=== PATIENT | male | born 1990 | race Caucasian/White ===

== ENCOUNTER → 2018-02-04 | Outpatient (CLI) | payer OTHER | LOC: M CARPUL 08:24 | DX: G47.30 Sleep apnea, unspecified (principal); R03.0 Elevated blood-pressure reading, without diagnosis of hypertension | CPT/HCPCS: 93306 ==

== ENCOUNTER → 2022-08-11 | Outpatient (REF) | LOC: M RAD 16:37 | PROVIDERS: ATTEND Internal Medicine | DX: M54.50 Low back pain, unspecified (principal) ==

== ENCOUNTER → 2022-12-07 | Outpatient (CLI) | payer OTHER ==
[~2022-12-07] MED LIST: PROHANCE 279.3MG/ML 15ML VIAL As Ordered ONE; PROHANCE 279.3MG/ML 5ML VIAL As Ordered ONE
== END ==
LOC: M RAD 14:21
PROVIDERS: ATTEND Internal Medicine
DX: R51.9 Headache, unspecified (principal)
CPT/HCPCS: 70553; A9576

== ENCOUNTER → 2023-01-27 | Outpatient (CLI) | payer OTHER | LOC: M SLEEP 20:00 | PROVIDERS: ATTEND Internal Medicine | DX: G47.33 Obstructive sleep apnea (adult) (pediatric) (principal) ==

== ENCOUNTER 2023-03-18 12:49 | Emergency (ER) | payer OTHER ==
[~2023-03-18] VITALS: Ht 193 cm; Wt 126.0 kg
[2023-03-18 12:49] VITALS: BP 136/87
[2023-03-18] MEDS ORDERED: AMOX875T (13:00)
[2023-03-18] MEDS ORDERED: ANDR1.62 (13:00)
[2023-03-18] MEDS ORDERED: METO1TAB7 (13:00)
[2023-03-18] MEDS ORDERED: CELE1CAP9 (13:00)
[2023-03-18] MEDS ORDERED: BOOSTRIX VACCINE (TETANUS/DIPHTH/ACEL. PERTUSSIS) 0.5ML SYR IM ONE (13:00)
[2023-03-18] MEDS ORDERED: VITA100093 (13:00)
[2023-03-18] MEDS ORDERED: LIDOCAINE 2% MDV 20ML VIAL SC ONE (13:30)
== END 2023-03-18 14:10 | disposition home or self-care (01) ==
LOC: M ED 12:49
DX: S61.012A Laceration without foreign body of left thumb without damage to nail, initial encounter (principal); W26.8XXA Contact with other sharp object(s), not elsewhere classified, initial encounter; Y92.019 Unspecified place in single-family (private) house as the place of occurrence of the external cause; Y93.89 Activity, other specified; Y99.8 Other external cause status; I10 Essential (primary) hypertension; R86.1 Abnormal level of hormones in specimens from male genital organs

== ENCOUNTER 2024-07-18 01:06 | Emergency (ER) | payer OTHER ==
[~2024-07-18] VITALS: Ht 193 cm; Wt 108.3 kg
[~2024-07-18 01:06] MED LIST changes: +AMOX875T; +ANDR1.62; +CELE0.09; +METO1TAB7; -PROHANCE 279.3MG/ML 15ML VIAL As Ordered ONE; -PROHANCE 279.3MG/ML 5ML VIAL As Ordered ONE; +VITA100093
[2024-07-18 02:05] LABS: BASO # 0.1 10^3/uL (0.0-0.2); BASO % 0.6 % (0.0-1.0); EOS # 0.2 10^3/uL (0.0-0.5); EOS % 2.3 % (0.0-3.0); HEMATOCRIT 48.2 % (42.0-52.0); HEMOGLOBIN 16.9 g/dl (13.5-17.5); LYMPH # 2.5 10^3/uL (1.5-5.0); LYMPH % 32.4 % (24.0-44.0); MEAN CORPUSCULAR HEMOGLOBIN 31.1 pg (27.0-33.0); MEAN CORPUSCULAR HGB CONC 35.1 g/dl (32.0-36.5); MEAN CORPUSCULAR VOLUME 88.8 fl (80.0-96.0); MONO # 0.8 10^3/uL (0.0-0.8); MONO % 10.1 % (2.0-8.0); NEUTROPHILS # 4.2 10^3/uL (1.5-8.5); NEUTROPHILS % 54.3 % (36.0-66.0); PLATELET COUNT, AUTOMATED 296 10^3/uL (150-450); RED BLOOD COUNT 5.43 10^6/uL (4.30-6.10); WHITE BLOOD COUNT 7.7 10^3/uL (4.0-10.0)
[2024-07-18 02:33] LABS: LIPASE 29 U/L (12-53)
[2024-07-18 02:35] LABS: ALBUMIN 4.8 G/DL (3.2-5.2); ALKALINE PHOSPHATASE 75 U/L (46-116); ALT/SGPT 45 U/L (7.0-40); AST/SGOT 23 U/L (<34); BILIRUBIN,DIRECT 0.2 MG/DL (<0.4); BILIRUBIN,TOTAL 0.6 MG/DL (0.3-1.2); BLOOD UREA NITROGEN 15 MG/DL (9-23); CARBON DIOXIDE LEVEL 29 MMOL/L (20-31); CHLORIDE LEVEL 105 MMOL/L (98-107); CREATININE FOR GFR 0.77 MG/DL (0.70-1.30); GLOMERULAR FILTRATION RATE > 60.0 (>60); GLUCOSE, FASTING 92 MG/DL (60-100); POTASSIUM SERUM 4.5 MMOL/L (3.5-5.1); SODIUM LEVEL 136 MMOL/L (136-145); TOTAL PROTEIN 8.2 G/DL (5.7-8.2)
[2024-07-18] MEDS ORDERED: ISOVUE-370 76% 100ML VIAL As Ordered ONE (04:34)
[2024-07-18] MEDS: ONDANSETRON 4MG 2ML VIAL IV ONE (04:38)
[2024-07-18] MEDS: KETOROLAC 30 MG/ML 1ML VIAL IV ONE (04:41)
[2024-07-18 06:11] VITALS: BP 133/71; TEMP 98.6; O2SAT 99
[2024-07-18] MEDS ORDERED: PEPC1TAB5 PO (06:48)
[2024-07-18] MEDS ORDERED: PROT1TAB2 PO (06:48)
[2024-07-18] MEDS ORDERED: CARA1TAB6 PO (06:48)
[2024-07-18] MEDS: FAMOTIDINE 20 MG TAB PO ONE (06:54)
[2024-07-18] MEDS: SUCRALFATE 1 GM TAB PO ONE (06:54)
[2024-07-18] MEDS: PANTOPRAZOLE 40MG VIAL IV ONE (06:54)
== END 2024-07-18 07:03 | disposition home or self-care (01) ==
LOC: M ED 01:06
DX: R10.13 Epigastric pain (principal); I10 Essential (primary) hypertension; K57.92 Diverticulitis of intestine, part unspecified, without perforation or abscess without bleeding; F17.200 Nicotine dependence, unspecified, uncomplicated; Z79.899 Other long term (current) drug therapy
CPT/HCPCS: 74177; 80048; 80076; 83690; 85025; 96374; 96375; 99284; J1885; J2405; J2470; Q9967

== ENCOUNTER 2025-08-23 08:33 | Day surgery (SDC) | payer OTHER ==
[~2025-08-23] VITALS: Ht 193 cm; Wt 103.3 kg
[~2025-08-23 08:33] MED LIST changes: -ANDR1.62; +ATOR40TA75 PO; +CARA1TAB6 PO; +LIDOCAINE 2% 100 MG/5 ML SDV (FOR ANES.) As Ordered ONE; +PEPC1TAB5 PO; +PROT1TAB2 PO; +TEST75GE10
[2025-08-23] MEDS ORDERED: MIDAZOLAM INJ 2 MG/2 ML VIAL As Ordered ONE (09:56)
[2025-08-23 10:15] VITALS: TEMP 97.2
[2025-08-23 10:31] VITALS: BP 115/72; O2SAT 100
== END 2025-08-23 10:45 | disposition home or self-care (01) ==
LOC: M OPP 08:33
PROVIDERS: ATTEND Surgery
DX: D12.6 Benign neoplasm of colon, unspecified (principal); K57.30 Diverticulosis of large intestine without perforation or abscess without bleeding; K63.89 Other specified diseases of intestine; K52.9 Noninfective gastroenteritis and colitis, unspecified; R10.84 Generalized abdominal pain; Z79.899 Other long term (current) drug therapy; F17.210 Nicotine dependence, cigarettes, uncomplicated
CPT/HCPCS: 45380; 45385; 88305; J2250